=== PATIENT | female | born 1985 | race Caucasian/White ===

== ENCOUNTER 2024-07-15 09:00 | Outpatient (RCR) | payer OTHER, SELFPAY ==
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
== END 2024-07-19 14:26 | disposition home or self-care (01) ==
LOC: PHYS 09:00
PROVIDERS: Family Provider Nurse Practitioner; PCP Nurse Practitioner; Referring Provider Registered Nurse; Visit Provider Registered Nurse
DX: N39.3 Stress incontinence (female) (male) (principal); M54.50 Low back pain, unspecified; M25.659 Stiffness of unspecified hip, not elsewhere classified
CPT/HCPCS: 97110; 97112; 97140; 97162; 97530; 97535